=== PATIENT | male | born 1990 | race Caucasian/White ===

== ENCOUNTER 2019-07-08 09:55 | Emergency (ER) | payer SELFPAY ==
[2019-07-08 10:15] VITALS: BP 145/89; PULSE 86; RESP 20; TEMP 36.7; O2SAT 98
--- NOTE | 2019-07-08 10:50 | PC.NURSE ---
Report to [facility]
--- NOTE | 2019-07-08 10:55 | ED.GENADULT ---
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 He says he is feeling under the weather . He has been having some diarrhea for 2 days. He does admit to drinking last evening but he says he did not get drunk. He occasionally smokes. He takes CBD and uses alcohol for his mental issues. Onset (ago): day(s) (2) Associated symptoms: cough (Mild dry) and malaise Treatments prior to arrival: none Related Data Home Medications Medication Instructions Recorded Confirmed No Home Medications 07/08/19 07/08/19 Allergies Allergy/AdvReac Type Severity Reaction Status Date / Time No Known Allergies Allergy Verified 07/08/19 10:15 Review of Systems Constitutional: Constitutional: Denies chills and Denies fever(s) Eyes: Eyes: Reports no additional eye complaints ENT: Denies sore throat Cardiovascular: Cardiovascular: Reports chest pain (discomfort) Respiratory: Respiratory: Denies dyspnea and Denies wheezing Gastrointestinal: Gastrointestinal: Denies abdominal pain, Reports diarrhea, Denies nausea and Denies vomiting Genitourinary: Genitourinary: Reports no additional male genitourinary complaints Musculoskeletal: Musculoskeletal: Reports no additional musculoskeletal complaints Neurologic: Reports system reviewed and no additional complaints, except as documented Hematologic/Lymphatic: Hematologic/Lymphatic: Reports no additional hematologic/lymphatic complaints Allergic/Immunologic: Allergic/Immunologic: Reports no additional allergic/immunologic complaints [facility] Past Medical History Medical History (Updated 07/08/19 @ 12:10 by Akhil Verduzco MD) No active medical problems Surgical History Surgical History (Updated 07/08/19 @ 11:35 by Akhil Verduzco MD) No history of previous surgery Social History Social History (Updated 07/08/19 @ 11:35 by Akhil Verduzco MD) Smoking status: Current some day smoker Alcohol intake: current Alcohol use details: Daily Substance use type: other Other substance usage details: CBD Exam Const: General: healthy appearing and no acute distress Nutritional Appearance: well nourished Orientation/consciousness: patient oriented x3 Limitations: no limitations HENMT: Head: normal to inspection Ears: external ears normal General nose exam: Normal external nose present Eyes: Conjunctivae: conjunctivae normal Pupils: Equal, round and reactive pupils present EOM: EOMs intact bilaterally Neck: Neck: normal visual inspection and no lymphadenopathy Resp: Effort & Inspection: normal respiratory effort Auscultation: clear to auscultation bilaterally Cardio: Rate: regular rate Rhythm: regular rhythm Heart sounds: no murmurs GI: GI Palp: Yes Soft to palpation and No Tenderness to palpation present (GI) Auscultation: normal bowel sounds Back/Spine/Pelvis: Cervical Spine: cervical ROM normal Thoracic/Lumbar Spine: thoraco-lumbar ROM normal Skin: General skin exam: normal color Rashes: no rashes Neuro: General: patient oriented x3, moves all extremities and no focal motor deficits Speech: normal speech Extrem: General: normal to inspection and no clubbing, cyanosis or edema Psych: Appearance: grossly normal and well kempt Mental Status: mental status grossly normal Affect: normal affect Attitude: cooperative Thought content: Yes Normal thought content present Course Vital Signs Vital signs: Vital Signs Temperature 36.7 C 07/08/19 10:15 Pulse Rate 86 07/08/19 10:15 Respiratory Rate 20 07/08/19 10:15 Blood Pressure 145/89 H 07/08/19 10:15 Pulse Oximetry 98 07/08/19 10:15 Temperature 36.7 C 07/07
[2019-07-08 11:25] LABS: Basophils Absolute Auto 0.04 K/mm3 (0.00-0.10); Basophils Percent Auto 0.4 % (0.0-1.0); Eosinophils Absolute Auto 0.08 K/mm3 (0.02-0.50); Eosinophils Percent Auto 0.9 % (1.0-6.0); Hematocrit 44.6 % (40.0-54.0); Hemoglobin 15.2 g/dL (14.0-18.0); Immature Granulocyte Absolute 0.02 K/mm3 (0.00-0.00); Immature Granulocyte Percent A 0.2 % (0.0-0.0); Lymphocytes Absolute Auto 2.18 K/mm3 (1.10-4.50); Lymphocytes Percent Auto 24.4 % (18.0-42.0); Mean Corpuscular HGB Conc 34.1 g/dL (32.0-36.0); Mean Corpuscular Hemoglobin 29.7 pg (27.0-31.0); Mean Corpuscular Volume 87.3 fL (78.0-102.0); Mean Platelet Volume 10.1 fl (8.7-11.0); Monocytes Absolute Auto 0.71 K/mm3 (0.10-0.90); Neutrophils Absolute Auto 5.9 K/mm3 (1.7-7.2); Neutrophils Percent Auto 66.1 % (50.0-70.0); Platelet Count Result 279 K/mm3 (150-420); Red Blood Count 5.11 M/mm3 (4.70-6.10); Red Cell Distribution Width 12.1 % (11.6-14.4); White Blood Count 8.9 K/mm3 (4.8-10.8)
[2019-07-08 11:46] LABS: Alanine Aminotransferase 52 U/L (16-63); Albumin Level 4.5 g/dL (3.4-5.0); Alkaline Phosphatase 92 U/L (46-116); Anion Gap 14.1 mmol/L (7-16); Aspartate Amino Transferase 28 U/L (15-37); Bilirubin,Total 0.4 mg/dL (0.00-1.00); Blood Urea Nitrogen 15 mg/dL (7-18); Calcium 9.2 mg/dL (8.5-10.1); Carbon Dioxide 25 mmol/L (21-32); Chloride 103 mmol/L (98-108); Estimated CRCL calculation 119 ml/min; Estimated Glomerular Filt Rate > 60; Glucose 90 mg/dL (70-99); Osmolality Calculated 286 mOsm/kg (285-295); Potassium 4.1 mmol/L (3.5-5.1); Sodium 138 mmol/L (136-145); Total Protein 7.8 g/dL (6.4-8.2)
[2019-07-08 11:52] LABS: CRP < 0.2 mg/dL (0.0-0.9)
[2019-07-08 12:20] VITALS: BP 143/92; PULSE 79; RESP 18; O2SAT 98
== END 2019-07-08 12:20 | disposition home or self-care (01) ==
PROVIDERS: Emergency Provider Emergency Medicine; PCP Family Medicine
DX: K52.9 Noninfective gastroenteritis and colitis, unspecified (principal)
CPT/HCPCS: 36415; 80053; 85025; 86140; 99282; 99283

== ENCOUNTER 2020-11-17 16:51 | Emergency (ER) | payer OTHER, SELFPAY ==
--- NOTE | ~2020-11-17 | XR_ITS ---
EXAMINATION: XR chest 1V portable INDICATION: Body aches TECHNIQUE: Portable AP chest at 1844 hours COMPARISON: 07/23/2016 FINDINGS: The lungs are free of acute opacities. There is no pleural effusion or pneumothorax. The ca rdiomediastinal silhouette is normal for technique. IMPRESSION: 1. No acute cardiopulmonary abnormality. Reviewed, dictated and finalized at location A.
[2020-11-17 16:58] VITALS: BP 117/82; PULSE 92; RESP 16; TEMP 37.5; O2SAT 99
[2020-11-17 17:54] LABS: Basophils Absolute Auto 0.01 K/mm3 (0.00-0.10); Basophils Percent Auto 0.2 % (0.0-1.0); Hemoglobin 13.6 g/dL (14.0-18.0); Immature Granulocyte Absolute 0.02 K/mm3 (0.00-0.00); Immature Granulocyte Percent A 0.3 % (0.0-0.0); Lymphocytes Absolute Auto 1.42 K/mm3 (1.10-4.50); Mean Corpuscular HGB Conc 34.9 g/dL (32.0-36.0); Mean Corpuscular Hemoglobin 30.3 pg (27.0-31.0); Mean Corpuscular Volume 86.9 fL (78.0-102.0); Mean Platelet Volume 10.3 fl (8.7-11.0); Monocytes Absolute Auto 0.82 K/mm3 (0.10-0.90); Monocytes Percent Auto 13.9 % (2.0-11.0); Neutrophils Absolute Auto 3.7 K/mm3 (1.7-7.2); Neutrophils Percent Auto 61.6 % (50.0-70.0); Platelet Count Result 197 K/mm3 (150-420); Red Blood Count 4.49 M/mm3 (4.70-6.10); Red Cell Distribution Width 12.6 % (11.6-14.4); White Blood Count 5.9 K/mm3 (4.8-10.8)
[2020-11-17 18:08] LABS: Alanine Aminotransferase 31 U/L (16-63); Albumin Level 3.9 g/dL (3.4-5.0); Alkaline Phosphatase 74 U/L (46-116); Anion Gap 15 mmol/L (8-16); Aspartate Amino Transferase 18 U/L (15-37); Bilirubin,Total 0.2 mg/dL (0.00-1.00); Blood Urea Nitrogen 15 mg/dL (7-18); Calcium 8.8 mg/dL (8.5-10.1); Carbon Dioxide 23 mmol/L (21-32); Chloride 104 mmol/L (98-108); Estimated CRCL calculation 95 ml/min; Estimated Glomerular Filt Rate > 60; Glucose 104 mg/dL (70-99); Osmolality Calculated 294 mOsm/kg (285-295); Potassium 3.5 mmol/L (3.5-5.1); Sodium 142 mmol/L (136-145)
[2020-11-17 18:14] LABS: SARS-CoV-2 Ag Positive (Negative)
[2020-11-17 18:15] LABS: Influenza Control Valid (Valid)
--- NOTE | 2020-11-17 18:20 | ED.URI ---
HPI - URI/Sore Throat General Chief Complaint: Upper Respiratory Infection Stated Complaint: fatigue/Dizzy/lower back pain in kidney Time Seen by Provider: 11/17/20 17:05 Source: patient and family Mode of arrival: ambulatory Limitations: no limitations History of Present Illness HPI Narrative: Patient comes in with complaints of not feeling well. He has had body aches for the last 2 days, he has had a clear thin runny nose. He has denied cough and shortness of breath. he has denied fever. Body aches have been moderately severe, ongoing for the 2 days, and associated with the runny nose. Nothing has made this better or worse at home. He has had covid positive contacts. MD elicited complaint: rhinorrhea and nasal congestion Onset (ago): day(s) Consistency: constant Severity: moderate Description of mucous: watery Able to tolerate fluids by mouth: Yes Exacerbating factors: nothing Relieving factors: nothing Context: sick contacts Associated symptoms: denies other symptoms Related Data Home Medications Medication Instructions Recorded Confirmed finasteride 1 mg PO DAILY 11/17/20 11/17/20 Allergies Allergy/AdvReac Type Severity Reaction Status Date / Time No Known Allergies Allergy Verified 07/08/19 10:15 Review of Systems Constitutional: Constitutional: Reports fatigue Eyes: Eyes: Reports no additional eye complaints ENT: Reports nasal congestion Comments: clear thin nasal secretions Cardiovascular: Cardiovascular: Reports no additional cardiovascular complaints Respiratory: Respiratory: Reports no additional respiratory complaints Gastrointestinal: Gastrointestinal: Reports no additional gastrointestinal complaints Genitourinary: Genitourinary: Reports no additional male genitourinary complaints Musculoskeletal: Musculoskeletal: Reports myalgias Neurologic: Reports system reviewed and no additional complaints, except as documented Psychiatric: Psychiatric: Reports no additional psychiatric complaints Endocrine: Endocrine: Reports no additional endocrine complaints Hematologic/Lymphatic: Hematologic/Lymphatic: Reports no additional hematologic/lymphatic complaints Allergic/Immunologic: Allergic/Immunologic: Reports no additional allergic/immunologic complaints [facility] Past Medical History Medical History No active medical problems Surgical History Surgical History No history of previous surgery Family History Family History Other No significant family history Social History Social History (Updated 07/31/21 @ 18:41 by Akhil Wood MD) Smoking status: Former smoker Alcohol intake: current Alcohol use details: Daily Substance use type: marijuana Other substance usage details: CBD Exam Const: General: no acute distress and alert Orientation/consciousness: patient oriented x3 HENMT: Head: normal to inspection Ears: external ears normal (both canals appear mildly inflammed ) and TM's normal bilaterally General nose exam: Normal nares present and Nasal discharge present (clear thin) Face and sinus: normal facial exam Eyes: Conjunctivae: conjunctivae normal Neck: Neck: normal visual inspection Chest: Chest palpation & inspection: normal inspection of the chest Resp: Effort & Inspection: normal respiratory effort Auscultation: clear to auscultation bilaterally Cardio: Rate: regular rate Rhythm: regular rhythm GI: GI Palp: Yes Soft to palpation Auscultation: normal bowel sounds Back/Spine/Pelvis: Back: no CVA tenderness Skin: General skin exam: normal color Neuro: General: patient oriented x3 and moves all extremities Extrem: General: normal to inspection Psych: Appearance: grossly normal Mental Status: mental status grossly normal Thought content: Yes Normal thought content present Course Cour
[2020-11-17 18:30] VITALS: BP 118/83; PULSE 90; RESP 18; TEMP 37.5; O2SAT 98
[2020-11-17] MEDS: DEXAMETHASONE 4 MG TABLET 8 MG PO (18:47)
== END 2020-11-17 18:58 | disposition home or self-care (01) ==
PROVIDERS: Emergency Provider Emergency Medicine; PCP Family Medicine
DX: U07.1 COVID-19 (principal)
CPT/HCPCS: 71045; 80053; 85025; 87426; 87804; 99283; C9803; J8540

== ENCOUNTER 2022-09-24 10:10 | Emergency (ER) | payer MEDICAID, SELFPAY ==
[2022-09-24 10:10] VITALS: BP 139/85; PULSE 89; RESP 16; TEMP 36.9; O2SAT 97
--- NOTE | 2022-09-24 10:51 | ED.GENADULT ---
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 Approximate 2 months ago he had a spider bite and the medial aspect of his left thigh. It was a bit larger in size and the skin opening was approximately 2 cm. This has improved and is down to 1 cm but has not healed. There is mild surrounding erythema. There is clear drainage from the wound but no purulent drainage. Does itch. Initially had a Medrol Dosepak steroids and antibiotics but cannot remember the name of the antibiotic that he took twice daily. 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 Not diabetic. No fevers. No other complaints. Related Data Allergies Allergy/AdvReac Type Severity Reaction Status Date / Time No Known Allergies Allergy Verified 09/24/22 10:49 Review of Systems Review of Systems: All systems reviewed & are unremarkable except as noted in HPI and below Constitutional: Constitutional: Denies chills, Denies excessive sweating, Denies fatigue, Denies fever(s), Denies headache(s) and Denies weakness Eyes: Eyes: Denies change in vision and Denies photophobia ENT: Denies dysphagia, Denies dizziness, Denies headache(s), Denies lip swelling, Denies nasal congestion, Denies sore throat and Denies tongue swelling Cardiovascular: Cardiovascular: Denies chest pain, Denies syncope, Denies rapid heart rate and Denies dyspnea Respiratory: Respiratory: Denies cough, Denies dyspnea and Denies wheezing Gastrointestinal: Gastrointestinal: Denies abdominal pain, Denies constipation, Denies dysphagia, Denies diarrhea, Denies nausea and Denies vomiting Genitourinary: Genitourinary: Denies hematuria, Denies dysuria, Denies urinary frequency and Denies urinary urgency Musculoskeletal: Musculoskeletal: Denies back pain, Denies myalgias, Denies arthralgias, Denies joint swelling and Denies numbness Integumentary/Breasts: Skin/Breast: Denies pruritus, Reports erythema and Reports rash Neurologic: Denies confusion, Denies dizziness, Denies syncope, Denies headache(s), Denies focal weakness, Denies numbness and Denies weakness Psychiatric: Psychiatric: Denies anxiety and Denies confusion Endocrine: Endocrine: Denies excessive sweating and Denies fatigue Hematologic/Lymphatic: Hematologic/Lymphatic: Denies easy bleeding and Denies easy bruising Allergic/Immunologic: Allergic/Immunologic: Denies lip swelling, Denies tongue swelling and Denies wheezing PMFSH Past Medical History Medical History No active medical problems Surgical History Surgical History No history of previous surgery Family History Family History Other No significant family history Social History Social History Smoking status: Former smoker Alcohol intake: current Alcohol use details: Daily Substance use type: marijuana Other substance usage details: CBD Exam Const: General: healthy appearing, no acute distress, alert and well nourished Nutritional Appearance: well nourished Orientation/consciousness: patient oriented x3 Limitations: no limitations HENMT: Head: normal to inspection Ears: external ears normal Face/Nose/Sinus: normal facial exam Face and sinus: normal facial exam Mouth: Yes moist mucous membranes Throat: posterior oropharynx normal Eyes: Conjunctivae: conjunctivae normal Pupils: Equal, round and reactive pupils present EOM: EOMs intact bilaterally Neck: Neck: normal visual inspection and no meningeal signs Chest: Chest palpation & inspection: normal inspection of the chest and no tenderness R
[2022-09-24] MEDS: NEOMYCIN/POLYMYXIN/BACITRACIN OINTMENT 15 GM TUBE 1 APPLIC TOPICAL (11:03)
[2022-09-24] MEDS: hydrOXYzine HCL 25 MG TABLET 50 MG PO (11:03)
[2022-09-24] MEDS: DOXYCYCLINE HYCLATE 100 MG TABLET PO (11:03)
[2022-09-24 11:12] VITALS: BP 132/78; PULSE 62; RESP 14; TEMP 36.6; O2SAT 98
== END 2022-09-24 11:14 | disposition home or self-care (01) ==
LOC: CHSED 11:01
PROVIDERS: Emergency Provider Emergency Medicine; PCP Family Medicine
DX: T63.301A Toxic effect of unspecified spider venom, accidental (unintentional), initial encounter (principal); S71.152A Open bite, left thigh, initial encounter; L98.499 Non-pressure chronic ulcer of skin of other sites with unspecified severity; Z87.891 Personal history of nicotine dependence
CPT/HCPCS: 99283; A9270

== ENCOUNTER 2023-10-10 21:21 | Emergency (ER) | payer OTHER, SELFPAY ==
[2023-10-10 21:26] VITALS: BP 123/88; PULSE 85; RESP 18; TEMP 36.9; O2SAT 97
--- NOTE | 2023-10-10 21:28 | ECG_ITS ---
Test Date: 2023-10-10 21:41:26 Measurements Intervals [place] Rate: 78 P: 74 IN: 139 QRS: 71 QRSD: 101 T: 57 QT: 354 QTc: 404 Interpretive Statements SINUS RHYTHM EARLY REPOLARIZATION OTHERWISE NORMAL ECG No previous ECG available for comparison Electronically Signed On 10-11-2023 08:54:55 CDT by Octavio Bone M.D.
--- NOTE | 2023-10-10 21:32 | ED.PSYCH ---
HPI - Psych General Chief Complaint: Psychiatric Symptoms <Octavio Loya MD - Last Filed: 10/11/23 03:45> Stated Complaint: psychiatric issues <Octavio Loya MD - Last Filed: 10/11/23 03:45> Time Seen by Provider: 10/10/23 21:28 <Octavio Loya MD - Last Filed: 10/11/23 03:45> Source: patient and EMS <Octavio Loya MD - Last Filed: 10/11/23 03:45> Mode of arrival: EMS <Octavio Loya MD - Last Filed: 10/11/23 03:45> Limitations: no limitations <Octavio Loya MD - Last Filed: 10/11/23 03:45> History of Present Illness HPI Narrative: this is a 33-year-old male who presents via EMS with suicidal ideation with a clear plan of cutting his wrists, does have a superficial cut to his left wrist currently not bleeding has history of the same at the age of 9. Has been having a difficult time with some his social environment including relationships and work. Has a history of depression and ADHD. Patient has no fever chills no chest pain or shortness of breath no abdominal pain no flank pain no dysuria. <Octavio Loya MD - Last Filed: 10/11/23 03:45> MD complaint: suicidal ideation and feels depressed <Octavio Loya MD - Last Filed: 10/11/23 03:45> Onset (ago): day(s) <Octavio Loya MD - Last Filed: 10/11/23 03:45> Duration: constant <Octavio Loya MD - Last Filed: 10/11/23 03:45> History of same: Yes <Octavio Loya MD - Last Filed: 10/11/23 03:45> Relieving factors: none <Octavio Loya MD - Last Filed: 10/11/23 03:45> Related Data Home Medications: Home Medications Medication Instructions Recorded Confirmed No Home Medications 10/11/23 10/11/23 <Octavio Loya MD - Last Filed: 10/11/23 03:45> Allergies/Adverse Reactions: Allergies Allergy/AdvReac Type Severity Reaction Status Date / Time No Known Allergies Allergy Verified 09/24/22 10:49 <Octavio Loya MD - Last Filed: 10/11/23 03:45> Review of Systems Review of Systems: All systems reviewed & are unremarkable except as noted in HPI and below <Octavio Loya MD - Last Filed: 10/11/23 03:45> PMFSH Past Medical History Medical History: Medical History No active medical problems <Octavio Loya MD - Last Filed: 10/11/23 03:45> Surgical History Surgical History: Surgical History No history of previous surgery <Octavio Loya MD - Last Filed: 10/11/23 03:45> Family History Family History: Family History Other No significant family history <Ocatvio Loya MD - Last Filed: 10/11/23 03:45> Social History Social History: Social History Smoking status: Former smoker Alcohol intake: current Alcohol use details: Daily Substance use type: marijuana Other substance usage details: CBD <Octavio Loya MD - Last Filed: 10/11/23 03:45> Exam Const: General: no acute distress <Octavio Loya MD - Last Filed: 10/11/23 03:45> Nutritional Appearance: well nourished <Octavio Loya MD - Last Filed: 10/11/23 03:45> Orientation/consciousness: patient oriented x3 <Octavio Loya MD - Last Filed: 10/11/23 03:45> Limitations: no limitations <Octavio Loya MD - Last Filed: 10/11/23 03:45> Neck: Neck: normal visual inspection, no lymphadenopathy and no meningeal signs <Octavio Loya MD - Last Filed: 10/11/23 03:45> Chest: Chest palpation & inspection: normal inspection of the chest <Octavio Loya MD - Last Filed: 10/11/23 03:45> Resp: Effort & Inspection: normal respiratory effort <Octavio Loya MD - Last Filed: 10/11/23 03:45> Auscultation: clear to auscultation bilaterally <Octavio Loya MD - Last Fi
[2023-10-10 22:19] LABS: Amphetamine Screen Urine Positive (Negative); Barbiturate Screen Urine Negative (Negative); Benzodiazepines Screen Urine Negative (Negative); Cannabinoid Screen Urine Positive (Negative); Cocaine Screen Urine Negative (Negative); Methadone Screen Urine Negative (Negative); Opiate Screen Urine Negative (Negative); Phencyclidine Screen Urine Negative (Negative)
[2023-10-10 22:20] LABS: Appearance Urine Clear (Clear); Bilirubin Urine Negative (Negative); Blood Urine Negative (Negative); Color Urine Yellow (Yellow); Glucose Urine UA Negative (Negative); Ketones Urine Trace (Negative); Leukocyte Esterase Ur Negative LEU/UL (Negative); Nitrate Urine Negative (Negative); Protein Urine Negative (Negative); Specific Grav Ur >= 1.030 (1.010-1.020); Urobilinogen Urine 0.2 mg/dL (0.2-1.0)
[2023-10-10 22:21] LABS: Add Urine Microscopic? NO
[2023-10-10 22:46] LABS: Basophils Absolute Auto 0.02 K/mm3 (0.00-0.10); Basophils Percent Auto 0.2 % (0.0-1.0); Eosinophils Absolute Auto 0.06 K/mm3 (0.02-0.50); Eosinophils Percent Auto 0.6 % (1.0-6.0); Hematocrit 40.9 % (40.0-54.0); Hemoglobin 13.8 g/dL (14.0-18.0); Immature Granulocyte Absolute 0.05 K/mm3 (0.00-0.00); Immature Granulocyte Percent A 0.5 % (0.0-0.0); Lymphocytes Percent Auto 17.5 % (18.0-42.0); Mean Corpuscular HGB Conc 33.7 g/dL (32-36); Mean Corpuscular Hemoglobin 28.9 pg (27.0-31.0); Mean Corpuscular Volume 85.7 fL (78.0-102.0); Mean Platelet Volume 10.2 fl (8.7-11.0); Monocytes Absolute Auto 0.67 K/mm3 (0.10-0.90); Monocytes Percent Auto 6.5 % (2.0-11.0); Neutrophils Absolute Auto 7.68 K/mm3 (1.70-7.20); Neutrophils Percent Auto 74.7 % (50.0-70.0); Platelet Count Result 231 K/mm3 (150-420); Red Blood Count 4.77 M/mm3 (4.70-6.10); White Blood Count 10.3 K/mm3 (4.8-10.8)
[2023-10-10 22:59] LABS: SARS-CoV-2 Ag Negative (Negative)
[2023-10-10 23:13] LABS: Alanine Aminotransferase 11 U/L (16-63); Albumin Level 4.1 g/dL (3.4-5.0); Alkaline Phosphatase 61 U/L (46-116); Anion Gap 13 mmol/L (4-12); Aspartate Amino Transferase 16 U/L (15-37); Bilirubin,Total 0.5 mg/dL (0.00-1.00); Blood Urea Nitrogen 20 mg/dL (7-18); Calcium 9.1 mg/dL (8.5-10.1); Carbon Dioxide 22 mmol/L (21-32); Chloride 102 mmol/L (98-108); Estimated CRCL calculation 91 ml/min; Estimated Glomerular Filt Rate > 60; Glucose 86 mg/dL (70-99); Osmolality Calculated 285 mOsm/kg (285-295); Potassium 3.5 mmol/L (3.5-5.1); Sodium 137 mmol/L (136-145)
[2023-10-10 23:19] LABS: Acetaminophen < 2 ug/mL (10-30); Ethanol < 3 mg/dL (0-6); Thyroid Stimulating Hormone Reflex 1.24 u/IU/mL (0.36-3.74)
[2023-10-10] MEDS: NICOTINE (*PBKC) 21 MG PATCH 1 PATCH TRANSDERM (23:23)
[2023-10-11 01:00] VITALS: BP 110/68; PULSE 72; RESP 18; TEMP 36.6; O2SAT 98
--- NOTE | 2023-10-11 02:14 | ECG_ITS ---
Test Date: 2023-10-11 02:23:36 Measurements Intervals [place] Rate: 64 P: 75 SC: 142 QRS: 70 QRSD: 106 T: 51 QT: 391 QTc: 406 Interpretive Statements SINUS RHYTHM EARLY REPOLARIZATION NORMAL ELECTROCARDIOGRAM Compared to ECG 10/10/2023 21:41:26 No significant changes Electronically Signed On 10-11-2023 08:55:17 CDT by Octavio Bone M.D.
--- NOTE | 2023-10-11 02:43 | PC.NURSE ---
[facility] speaking with pt
[2023-10-11 05:00] VITALS: BP 118/70; PULSE 65; RESP 18; TEMP 36.4; O2SAT 97
--- NOTE | 2023-10-11 08:10 | PC.NURSE ---
0800: Pt is comfortably sleeping at this time. Breakfast tray was brought down at 0725, but pt stated he was not hungry yet. Saved the breakfast tray to give to him later. No concerns at this time
[2023-10-11 08:43] VITALS: BP 116/78; PULSE 102; RESP 20; TEMP 36.2; O2SAT 95
--- NOTE | 2023-10-11 08:47 | PC.NURSE ---
0845: Q4 vitals were taken at this time. Pt stated that he would now like to eat breakfast. Tray given and a cup of water given, as well. No concerns at this time.
--- NOTE | 2023-10-11 09:06 | PC.NURSE ---
0900: Pt requested a visit from a scow captain. Relayed information to [facility]
--- NOTE | 2023-10-11 10:07 | PC.NURSE ---
1000: Pt is sleeping comfortably at this time. No concerns.
--- NOTE | 2023-10-11 10:29 | PC.NURSE ---
1027: Pt was transferred by amb
== END 2023-10-11 10:27 ==
PROVIDERS: Emergency Medicine; Emergency Provider Student in an Organized Health Care Education/Training Program; PCP Family Medicine
DX: F32.A Depression, unspecified (principal); R45.851 Suicidal ideations; F12.90 Cannabis use, unspecified, uncomplicated; Z87.891 Personal history of nicotine dependence; Z20.822 Contact with and (suspected) exposure to COVID-19
CPT/HCPCS: 36415; 80053; 80307; 81003; 84443; 85025; 87426; 93005; 99285; A9270

== ENCOUNTER 2024-02-06 22:36 | Emergency (ER) | payer OTHER, SELFPAY ==
[2024-02-06 22:37] VITALS: BP 119/75; PULSE 75; RESP 19; TEMP 36.1; O2SAT 99
--- NOTE | 2024-02-06 23:06 | ED.GENADULT ---
HPI - General Adult General Chief complaint: Skin/Abscess/Foreign Body Stated complaint: lost q tip in nose Time Seen by Provider: 02/06/24 22:50 History of Present Illness HPI narrative: patient presents stating that he has a Q-tip in his right [place]. He states that is been there for approximately 1 and half months. He states that he placed it in there because he has a deviated septum and he was trying to prop his nose open. He feels certain that it is in there because he can feel it. He denies any pain or purulent nasal discharge. he states he came to the emergency department tonight because it has been there for for a long time but nothing else is changed. Denies fever, chills, rigors, nausea, vomiting, diarrhea.? Related Data Home Medications Medication Instructions Recorded Confirmed No Home Medications 10/11/23 10/11/23 Allergies Allergy/AdvReac Type Severity Reaction Status Date / Time No Known Allergies Allergy Verified 09/24/22 10:49 [facility] Past Medical History Medical History No active medical problems Surgical History Surgical History No history of previous surgery Family History Family History Other No significant family history Social History Social History Smoking status: Former smoker Alcohol intake: current Alcohol use details: Daily Substance use type: marijuana Other substance usage details: CBD Exam Narrative: visualization of both nares bilaterally using an otoscope and cotton-tipped applicator to open the naris. I did not see any sign of Q-tip or any other foreign object in this gentleman's nose. patient's affect is quite odd and flat. He makes no eye contact. Course Vital Signs Vital signs: Vital Signs Temperature 36.1 C L 02/06/24 22:37 Pulse Rate 75 02/06/24 22:37 Respiratory Rate 19 02/06/24 22:37 Blood Pressure 119/75 02/06/24 22:37 Pulse Oximetry 99 02/06/24 22:37 Oxygen Delivery Room Air 02/06/24 22:37 Temperature 36.1 C L 02/06/24 22:37 Pulse Rate 75 02/06/24 22:37 Respiratory Rate 19 02/06/24 22:37 Blood Pressure 119/75 02/06/24 22:37 Pulse Oximetry 99 02/06/24 22:37 Oxygen Delivery Room Air 02/06/24 22:37 Medical Decision Making MDM Narrative Medical decision making narrative: Patient was placed in Room #:?3 Independent Historian: None External Source Review: none Differential diagnosis includes but not limited to:? foreign body, malingering, delusions Medications were Reviewed: none Independently Interpreted by me: none Medications, treatment, ED course: no foreign body identified in the patient's nose normal nasal turbinates and mucosa Social situation impacting patients care: patient lives independently in the community. He is noted to have an ankle monitoring bracelet on his leg Shared decision making:? patient agrees to follow-up with his primary care doctor. Given the time course of a month and half for this foreign body it is not appear urgent at this time especially as he has no signs or symptoms of infection or obstruction. Accepting physician: None DISCHARGE DIAGNOSIS: possible foreign body in nose DISPOSITION: home with self-care CONDITION AT DISCHARGE:? stable Vital Signs Vital Signs: Vital Signs Temperature 36.1 C L 02/06/24 22:37 Pulse Rate 75 02/06/24 22:37 Respiratory Rate 19 02/06/24 22:37 Blood Pressure 119/75 02/06/24 22:37 Pulse Oximetry 99 02/06/24 22:37 Oxygen Delivery Room Air 02/06/24 22:37 Temperature 36.1 C L 02/06/24 22:37 Pulse Rate 75 02/06/24 22:37 Respiratory Rate 19 02/06/24 22:37 Blood Pressure 119/75 02/06/24 22:37 Pulse Oximetry 99 02/06/24 22:37 Oxygen Delivery Room Air 02/06/24 22:37
[2024-02-06 23:17] VITALS: BP 122/72; PULSE 74; RESP 18; TEMP 36.6; O2SAT 99
== END 2024-02-06 23:17 | disposition home or self-care (01) ==
PROVIDERS: Emergency Provider Family Medicine; PCP Family Medicine
DX: T17.1XXA Foreign body in nostril, initial encounter (principal); Z87.891 Personal history of nicotine dependence; W44.8XXA Other foreign body entering into or through a natural orifice, initial encounter
CPT/HCPCS: 99281

== ENCOUNTER 2024-04-09 22:29 | Emergency (ER) | payer OTHER, SELFPAY ==
--- NOTE | ~2024-04-09 | XR_ITS ---
EXAMINATION: XR chest 1V portable DATE: 04/09/2024 22:55 INDICATION: Chest congestion with wheezing. TECHNIQUE: A single frontal view of the chest was obtained. COMPARISON: Chest view 11/17/2020 FINDINGS: There is no pneumonia, pleural effusion, or pneumothorax. The heart size is normal. IMPRESSION: 1. No acute cardiopulmonary disease. Reviewed, dictated and finalized at location A. 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
[2024-04-09 22:32] VITALS: BP 122/74; PULSE 92; RESP 16; TEMP 36.8; O2SAT 99
--- NOTE | 2024-04-09 22:38 | PC.NURSE ---
COVID PCR obtained and taken to lab
--- NOTE | 2024-04-09 22:49 | ED_ITS ---
HPI - SOB/Dyspnea General Chief Complaint: Shortness of Breath/Dyspnea Stated Complaint: upper respiratory Time Seen by Provider: 04/09/24 22:42 Source: patient and family Mode of arrival: ambulatory Limitations: no limitations History of Present Illness HPI Narrative: this is a 33-year-old male who presents with some shortness of breath with wheezing and nasal congestion started earlier today has been sick for the last couple of days with no fever chills no chest pain no nausea vomiting no abdominal pain. MD elicited complaint: shortness of breath and cough Pertinent past history: asthma Onset (ago): hour(s) Context: recent illness Timing: constant Severity: mild Related Data Allergies Allergy/AdvReac Type Severity Reaction Status Date / Time No Known Allergies Allergy Verified 04/09/24 22:38 Review of Systems Review of Systems: All systems reviewed & are unremarkable except as noted in HPI and below PMFSH Past Medical History Medical History No active medical problems Surgical History Surgical History No history of previous surgery Family History Family History Other No significant family history Social History Social History Smoking status: Former smoker Alcohol intake: current Alcohol use details: Daily Substance use type: marijuana Other substance usage details: CBD Exam Const: General: healthy appearing Nutritional Appearance: well nourished Orientation/consciousness: patient oriented x3 Limitations: no limitations Neck: Neck: normal visual inspection, no lymphadenopathy and no meningeal signs Chest: Chest palpation & inspection: normal inspection of the chest Resp: Effort & Inspection: normal respiratory effort Auscultation: wheezes GI: GI Palp: Yes Soft to palpation Auscultation: normal bowel sounds Skin: General skin exam: normal color Rashes: no rashes Neuro: General: patient oriented x3 and moves all extremities Course Course Emergency Course: Patient received DuoNeb and 80mg IM Depo-Medrol COVID RSV influenza performed and reviewed. Chest x-ray reviewed. Vital Signs Vital signs: Vital Signs Temperature 36.8 C 04/09/24 22:32 Pulse Rate 92 04/09/24 22:32 Respiratory Rate 16 04/09/24 22:32 Blood Pressure 122/74 04/09/24 22:32 Pulse Oximetry 99 04/09/24 22:32 Oxygen Delivery Room Air 04/09/24 22:32 Temperature 36.8 C 04/09/24 22:32 Pulse Rate 88 04/09/24 23:38 Respiratory Rate 16 04/09/24 23:38 Blood Pressure 122/74 04/09/24 22:32 Pulse Oximetry 100 04/09/24 23:38 Oxygen Delivery Room Air 04/09/24 23:38 MDM - SOB/Dyspnea Lab Data Labs: Lab Results 04/09/24 Range/Units 22:47 Influenza A (RT-PCR) Positive A (Negative) Influenza B (RT-PCR) Negative (Negative) RSV (RT-PCR) Negative (Negative) SARS-CoV-2 RNA (RT-PCR) Negative (Negative) Critical Care Time Critical Care Time Critical Care Time: No Discharge Plan Discharge Clinical Impression: Influenza A Patient Disposition: Home, Self-Care Condition: Stable Instructions: Antibiotic Form, Influenza (ED) Additional Instructions: advised to take medication as prescribed and follow with primary if symptoms persist or worsen. Patient Language: Sammarinese Prescriptions: New oseltamivir [Tamiflu] 75 mg capsule 75 mg PO Q12H 5 Days Qty: 10 0RF ProAir RespiClick 90 mcg/actuation aerosol powdr breath activated 2 inh inhalation QID PRN (Reason: shortness of breath or wheezing) Qty: 1 0RF Follow-up/Referrals: Heath Quiros MD [Primary Care Provider] - Time of Disposition: 23:40
[2024-04-09] MEDS: IPRATROPIUM 0.5 MG/ALBUTEROL SULFATE 2.5 MG AMPUL.NEB 3 ML INHALATION (23:04)
[2024-04-09] MEDS: methylPREDNISolone ACETATE 40 MG/ML VIAL 80 MG IM (23:04)
[2024-04-09 23:13] VITALS: PULSE 87; RESP 18; O2SAT 100
[2024-04-09 23:23] LABS: Influenza A QL RT-PCR Positive (Negative); Influenza B QL RT-PCR Negative (Negative); RSV RNA, RT-PCR Negative (Negative); SARS-CoV-2 RNA PCR Negative (Negative)
[2024-04-09 23:38] VITALS: PULSE 88; RESP 16; O2SAT 100
[2024-04-09] MEDS: OSELTAMIVIR PHOSPHATE 75 MG CAPSULE PO (23:42)
== END 2024-04-10 | disposition home or self-care (01) ==
PROVIDERS: Emergency Provider Emergency Medicine; PCP Family Medicine
DX: J10.1 Influenza due to other identified influenza virus with other respiratory manifestations (principal); F12.90 Cannabis use, unspecified, uncomplicated; Z87.891 Personal history of nicotine dependence; Z20.822 Contact with and (suspected) exposure to COVID-19
CPT/HCPCS: 71045; 87637; 99283; A9270; J1010